=== PATIENT | female | born 2000 | race Hispanic/Latino ===

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

== ENCOUNTER 2023-05-17 09:18 | Emergency (ER) | payer OTHER ==
[~2023-05-17] VITALS: Ht 154.9 cm; Wt 72.6 kg
[2023-05-17] MEDS ORDERED: DIPH-1242 PO (09:52)
[2023-05-17] MEDS ORDERED: DEXAMETHASONE SOD PHOSPHATE 4 MG/ML 1ML VIAL IM ONE (10:00)
[2023-05-17 10:40] VITALS: BP 116/78; PULSE 78; RESP 16; O2SAT 97
== END 2023-05-17 10:44 | disposition home or self-care (01) ==
LOC: EDH 09:18
DX: H57.89 Other specified disorders of eye and adnexa (principal)
CPT/HCPCS: 99283; 96372; J1100

== ENCOUNTER 2023-06-13 18:31 | Emergency (ER) | payer OTHER ==
[~2023-06-13] VITALS: Ht 154.9 cm; Wt 79.4 kg
[~2023-06-13 18:31] MED LIST: DIPH-1242 PO
[2023-06-13] MEDS ORDERED: ERYT1OIN7 OS (21:26)
[2023-06-13] MEDS ORDERED: ERYTHROMYCIN BASE 0.5% OPHTH OINT 1 GM TUBE OU SCH (21:30)
[2023-06-13 21:35] VITALS: BP 120/70; PULSE 88; RESP 16; O2SAT 97
== END 2023-06-13 21:39 | disposition home or self-care (01) ==
LOC: EDH 18:31
DX: H01.005 Unspecified blepharitis left lower eyelid (principal); J45.909 Unspecified asthma, uncomplicated

== ENCOUNTER 2023-12-28 14:40 | Emergency (ER) | payer OTHER ==
[~2023-12-28] VITALS: Ht 152.4 cm; Wt 74.8 kg
[~2023-12-28 14:40] MED LIST changes: +ERYT1OIN7 OS
[2023-12-28 15:29] LABS: RAPID GROUP A STREP negative (NEGATIVE)
[2023-12-28 15:39] LABS: COVID19 (SARS ANTIGEN RAPID) PRESUMPTIVE NEGATIVE (NEGATIVE); INFLUENZA TYPE A Negative For Type A (NEGATIVE); INFLUENZA TYPE B Negative For Type B (NEGATIVE)
[2023-12-28] MEDS: PREDNISONE 20 MG TABLET PO ONE (17:17)
[2023-12-28] MEDS: IBUPROFEN 600 MG TABLET PO ONE (17:18)
[2023-12-28 17:57] LABS: BASOPHILS # (AUTO) 0.08 K/uL (0.00-0.20); BASOPHILS % (AUTO) 1.1 % (0.0-5.0); EOSINOPHILS # (AUTO) 0.19 K/uL (0.00-0.70); EOSINOPHILS % (AUTO) 2.6 % (0.0-8.0); HEMATOCRIT 40.4 % (36-48); IMMATURE GRANULOCYTE ABSOLUTE 0.04 K/uL (0-1); LYMPHOCYTES # (AUTO) 3.4 K/uL (1.0-4.8); LYMPHOCYTES % (AUTO) 47.2 % (21.0-51.0); MEAN CORPUSCULAR HEMOGLOBIN 30.3 pg (27.0-33.0); MEAN CORPUSCULAR HGB CONC 33.4 g/dL (32.0-36.0); MEAN CORPUSCULAR VOLUME 90.8 fL (79-99); MONOCYTES # (AUTO) 0.6 K/uL (0.1-1.0); MONOCYTES % (AUTO) 8.3 % (3.0-13.0); NEUTROPHILS # (AUTO) 2.9 K/uL (1.8-7.7); NEUTROPHILS % (AUTO) 40.2 % (40.0-77.0); PLATELET COUNT (AUTO) 246 K/uL (130-400); RED BLOOD CELL COUNT(AUTO) 4.45 MIL/uL (4.00-5.50); RED CELL DISTRIBUTION WIDTH 13.2 % (11.0-15.5); WHITE BLOOD COUNT (AUTO) 7.3 K/uL (4.8-10.8)
[2023-12-28 18:03] LABS: CREATININE 0.7 mg/dL (0.5-1.0); POTASSIUM 3.5 mmol/L (3.5-5.1)
[2023-12-28] MEDS ORDERED: ACET-66 PO (18:13)
[2023-12-28] MEDS ORDERED: BROM118S48 PO (18:13)
[2023-12-28] MEDS ORDERED: AMOX-426 PO (18:13)
[2023-12-28 18:14] LABS: BAND NEUTROPHILS % (MANUAL) 2 % (0-2); EOSINOPHILS % (MANUAL) 3 % (1-6); LYMPHOCYTES % (MANUAL) 42 % (22-44); MAN.DIFF COMMENT-IMPRESSION MANUAL DIFFERENTIAL; MONOCYTES % (MANUAL) 1 % (2-9); REACTIVE LYMPHOCYTES 6 % (0-0); SEGMENTED NEUTROPHILS % 46 % (40-70); TOTAL CELLS COUNTED 100
[2023-12-28 18:17] LABS: PLATELET MORPHOLOGY COMMENT LARGE PLTS PRESENT
[2023-12-28 18:43] VITALS: BP 131/78; PULSE 100; RESP 20; O2SAT 99
== END 2023-12-28 18:47 | disposition home or self-care (01) ==
LOC: EDH 14:40
DX: J02.9 Acute pharyngitis, unspecified (principal); M79.10 Myalgia, unspecified site; J45.909 Unspecified asthma, uncomplicated; Z20.822 Contact with and (suspected) exposure to COVID-19; Z79.899 Other long term (current) drug therapy; Z98.890 Other specified postprocedural states
CPT/HCPCS: 36415; 80048; 85025; 87426; 87804; 87880